=== PATIENT | male | born 1940 ===

== ENCOUNTER 2018-03-06 07:19 | Day surgery (SDC) | payer MEDICARE, MEDICAID ==
[2016-10-15 08:42] VITALS: BMI 27.4
[2018-03-06] MEDS ORDERED: Propofol 10 mg/ml Inj (20 ML) ONE ×2 (09:10→09:38)
[2018-03-06] MEDS ORDERED: Lactated Ringer's 500 ML IV ONE ×2 (09:11→10:04)
[2018-03-06 10:23] VITALS: TEMP 96.8
[2018-03-06 10:38] VITALS: PULSE 62; O2SAT 100
[2018-03-06 11:14] VITALS: BP 119/59; RESP 21
== END 2018-03-06 11:08 | disposition home or self-care (01) ==
LOC: C.ENDO 07:19
PROVIDERS: ATTEND Internal Medicine Gastroenterology
DX: R15.9 Full incontinence of feces (principal); D12.4 Benign neoplasm of descending colon; D12.7 Benign neoplasm of rectosigmoid junction; D12.5 Benign neoplasm of sigmoid colon; K64.8 Other hemorrhoids
CPT/HCPCS: 45380; 45385; 88305; J2704; J7120

== ENCOUNTER 2018-04-29 08:26 | Outpatient (CLI) | payer MEDICARE, MEDICAID | END 2018-04-29 08:27 | disposition home or self-care (01) | LOC: C.RT 08:26 | DX: R06.02 Shortness of breath (principal) ==